=== PATIENT | male | born 1960 | race Hispanic/Latino ===

== ENCOUNTER → 2023-05-06 | Outpatient (CLI) | payer OTHER | END | disposition home or self-care (01) | LOC: RAH 08:14 | PROVIDERS: ATTEND Family Medicine | DX: N28.1 Cyst of kidney, acquired (principal); B18.1 Chronic viral hepatitis B without delta-agent; N20.0 Calculus of kidney | CPT/HCPCS: 76705 ==

== ENCOUNTER → 2024-06-08 | Outpatient (CLI) | payer OTHER | END | disposition home or self-care (01) | LOC: RAH 13:14 | PROVIDERS: ATTEND Student in an Organized Health Care Education/Training Program | DX: R06.09 Other forms of dyspnea (principal) | CPT/HCPCS: 93306 ==

== ENCOUNTER → 2024-08-14 | Outpatient (CLI) | payer OTHER ==
[2024-08-14 11:31] LABS: ALBUMIN 3.8 g/dL (3.5-5.0); BILIRUBIN,TOTAL 0.7 mg/dL (0.2-1.0); CREATININE 1.2 mg/dL (0.5-1.3)
== END | disposition home or self-care (01) ==
LOC: LAB 10:15
PROVIDERS: ATTEND Internal Medicine Cardiovascular Disease
DX: I10 Essential (primary) hypertension (principal)
CPT/HCPCS: 36415; 80053; 83880

== ENCOUNTER → 2024-08-15 | Outpatient (CLI) | payer OTHER ==
[~2024-08-15] MED LIST: IOHEXOL 350 MG/ML 100ML INFUS..BTL IV ONE; metoPROLOL tartRATE 1 MG/ML 5ML VIAL IV ONE
--- NOTE | 2024-08-15 11:21 | HMCIMG ---
CT calcium scoring Clinical Information: DYSPNEA Comparison: None CT Dose Index (CTDI): 13.30 mGy Dose Length Product (DLP): 186.18 total mGy-cm Findings: Calcium score 0. No identifiable calcification. The CT scan is not a complete chest CT. Covered portion is reviewed for incidental findings. No incidental findings seen. IMPRESSION: Calcium score as above. Calcium score reference stable: 0: No identifiable calcification 1- 10: Minimal identifiable calcification 11-100: Mild calcification 101- 400: Moderate calcification 401 and above: Significant calcification Automated exposure control and adequate statistical iterative reconstructions were utilized as dose reduction techniques.
--- NOTE | 2024-08-16 18:45 | CARDIOLOGY ---
RAD REPORT: [facility] CT ANGIO RADIOLOGY REPORT: CORONARY CT ANGIOGRAPHY DATE: August 16, 2024 QUALITY: Excellent CLINICAL HISTORY AND INDICATION: [JOHNSON ] TECHNIQUE: After obtaining a preliminary assistant unit forester image, contrast imaging performed on an [employer] [id number] scanner. A dedicated, limited window, coronary imaging protocol was used, with single breath-hold, retrospective ECG gating, and automated arrhythmia rejection. 100 cc of low osmolar contrast agent: Omnipaque 350 was delivered via a 18-gauge IV catheter in the right antecubital fossa, using a power injector and followed by 60 cc of normal saline bolus as a chaser. Collimated images were reformatted at 0.5 mm intervals, and sent to an offline independent workstation for interpretation, using 3D anatomic reconstructions: Curved multiplanar reconstructions, maximum intensity projections, and multiplanar imaging. 10 mg IV metoprolol was administered prior to scanning. 0.8 mg SL nitroglycerin was given. CORONARY ARTERY DESCRIPTIONS: The coronary arteries arise in normal position. Left main coronary artery: Normal caliber vessel that bifurcates into the LAD and LCx. No stenosis. Left anterior descending coronary artery: Normal caliber vessel and gives rise to diagonal and septal branches. No stenosis. Left circumflex coronary artery: Normal caliber, nondominant and gives rise to three OM branches. No stenosis. Right coronary artery: Large, dominant vessel giving rise to the PL and PDA branches. No stenosis. CAD-RADs: 0, absence of CAD. Thoracic Aorta: Normal diameter. Мария Andrews MD Cardiovascular Disease [facility] МАРИЯ ANDREWS MD August 16, 2024 18:45
== END | disposition home or self-care (01) ==
LOC: RAH 09:29
PROVIDERS: ATTEND Internal Medicine Cardiovascular Disease
DX: R06.00 Dyspnea, unspecified (principal)
CPT/HCPCS: 75574; J3490; Q9967

== ENCOUNTER → 2024-12-19 | Outpatient (CLI) | payer OTHER ==
--- NOTE | 2024-12-20 08:39 | HMCIMG ---
EXAMINATION: ULTRASOUND OF THE THYROID. CLINICAL HISTORY: Non-toxic goiter. COMPARISON: None. TECHNIQUE: Transverse and longitudinal images were obtained through both lobes and the isthmus of the thyroid. FINDINGS: The thyroid gland is normal in caliber with homogenous tissue echotexture. The right thyroid lobe measures 4.4 x 1.8 x 1.7 cm and the left thyroid lobe measures 4.7 x 1.7 x 1.0 cm in the craniocaudal, AP, and transverse dimensions respectively. The isthmus measures 0.5 cm in AP dimension. Right lobe: There is a hypoechoic solid nodule that measures 1.2 x 1.1 x 0.8 cm at the mid pole (TR5). There is a hypoechoic solid nodule that measures 0.6 x 0.5 x 0.6 cm at the lower pole (TR4). Left lobe: There is a cystic nodule that measures 0.2 x 0.1 cm at the lower pole (TR1). No significantly enlarged lymph nodes. IMPRESSION: Nodules in both lobes of the thyroid. TI-RADS follow up recommendations: TR1: no FNA required TR2: no FNA required TR3: more than or equal to 1.5 cm follow up, more than or equal to 2.5 cm FNA follow up: 1, 3 and 5 years TR4: more than or equal to 1.0 cm follow up, more than or equal to 1.5 cm FNA follow up: 1, 2, 3 and 5 years TR5: more than or equal to 0.5 cm follow up, more than or equal to 1.0 cm FNA annual follow up for up to 5 years /Jamila
== END | disposition home or self-care (01) ==
LOC: RAH 15:03
PROVIDERS: ATTEND Family Medicine
DX: E04.2 Nontoxic multinodular goiter (principal)
CPT/HCPCS: 76536

== ENCOUNTER → 2025-01-29 | Outpatient (CLI) | payer OTHER ==
--- NOTE | 2025-01-29 12:15 | NUR ---
U/S GD RT THYROID FNA PROCEDURE PERFORMED BY DR Hilario WILLSON. PUNCTURE SITE RT NECK AND PATIENT TOLERATED PROCEDURE WELL. SPECIMEN X 4 COLLECTED AND SENT TO LAB. END OF PROCEDURE AT 1155. ASPIRATION NEEDLE REMOVED AND DRESSING APPLIED. NO BLEEDING NOTED. DISCHARGE INSTRUCTIONS GIVEN TO PATIENT AND VERBALIZED UNDERSTANDING. DISCHARGED VIA AMBULATION AT 1215. COLD PACK PLACED ON BIOPSY SITE PRIOR TO DISCHARGE. AAO X3 WITH NO C/O PAIN.
--- NOTE | 2025-01-29 16:06 | HMCIMG ---
PROCEDURE: Ultrasound-guided right thyroid nodule fine needle aspiration; dated 01/29/2025 INDICATION: Right thyroid nodule. STAFF: Keron ANESTHESIA: Local, 1% lidocaine plain FINDINGS: Informed consent was obtained. Patient was placed in the supine position prepped and draped in the usual sterile fashion. Under ultrasound guidance, the right thyroid nodule was localized. Local anesthetic was applied using 1% plain lidocaine. The nodule measured 1.04 x 0.98 maximum dimensions and appears heterogeneously heterogeneous. Fine needle aspiration using coaxial technique with an 18 gauge introducer needle and a 22-gauge aspiration needle was performed under ultrasound guidance. 4 passes were made and reviewed directly by the sterile processing technologist, who confirmed adequate cytology. The patient tolerated the procedure well. SPECIMEN: 4 FNA passes, reviewed by tire maintenance technician COMPLICATIONS: None. EBL: Minimal. IMPRESSION: Status post ultrasound-guided right thyroid nodule fine needle aspiration, sent to pathology for further evaluation. I
== END ==
LOC: RAH 09:38
PROVIDERS: ATTEND Family Medicine
DX: E04.2 Nontoxic multinodular goiter (principal); I10 Essential (primary) hypertension; G47.30 Sleep apnea, unspecified; E78.00 Pure hypercholesterolemia, unspecified; Z82.49 Family history of ischemic heart disease and other diseases of the circulatory system; Z88.0 Allergy status to penicillin; Z79.899 Other long term (current) drug therapy; Z98.890 Other specified postprocedural states
CPT/HCPCS: 10005; 76942; 88173; 88305